=== PATIENT | male | born 1975 | race Two or more races ===

== ENCOUNTER 2020-09-15 08:51 | Emergency (ER) | payer OTHER ==
[~2020-09-15] VITALS: Ht 177.8 cm; Wt 75.0 kg
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
[2020-09-15] MEDS ORDERED: ORPH100T PO (10:18)
[2020-09-15 10:49] VITALS: BP 159/90
== END 2020-09-15 10:50 | disposition home or self-care (01) ==
LOC: ER 08:51
DX: M54.2 Cervicalgia (principal); M54.6 Pain in thoracic spine; R51.9 Headache, unspecified; G89.11 Acute pain due to trauma; Z88.8 Allergy status to other drugs, medicaments and biological substances; V89.2XXA Person injured in unspecified motor-vehicle accident, traffic, initial encounter; Y93.89 Activity, other specified; Y92.488 Other paved roadways as the place of occurrence of the external cause; Y99.8 Other external cause status
CPT/HCPCS: 70450; 72072; 72125; 99285-25